=== PATIENT | male | born 1980 | race Native Hawaiian/Other Pacific Islander ===

== ENCOUNTER 2016-10-01 05:20 | Emergency (ER) | payer OTHER ==
[~2016-10-01] VITALS: Ht 188 cm; Wt 72.6 kg
[~2016-10-01 05:20] MED LIST: MELO-13 PO; PHEN100C15 PO
[2016-10-01 05:40] VITALS: TEMP 98
[2016-10-01] MEDS ORDERED: LORTAB 10-325 M1 TAB PO (05:42)
[2016-10-01 06:36] LABS: PLATELET COUNT 268 K/uL (142-355)
[2016-10-01 06:44] LABS: POTASSIUM 3.4 mmol/L (3.6-5.2); SODIUM 137 mmol/L (136-145)
[2016-10-01 12:00] VITALS: BP 121/79
== END 2016-10-01 12:01 | disposition home or self-care (01) ==
LOC: ED 05:20
PROVIDERS: Emergency Medicine
DX: R11.2 Nausea with vomiting, unspecified (principal)
CPT/HCPCS: 36415; 80053; 80307; 81000; 82150; 83690; 85027; 86618; 96361; 96365; 96375; 99284; G0479; J1170; J2270; J2405; J2550; J3490

== ENCOUNTER 2016-12-18 10:12 | Outpatient (CLI) | payer OTHER ==
[~2016-12-18 10:12] MED LIST changes: +LORTAB 10-325 M1 TAB PO
== END 2016-12-18 11:15 | disposition home or self-care (01) ==
LOC: RAD 10:12
DX: M47.896 Other spondylosis, lumbar region (principal); M25.562 Pain in left knee; M25.561 Pain in right knee

== ENCOUNTER 2017-07-23 10:12 | Emergency (ER) | payer OTHER ==
[~2017-07-23] VITALS: Ht 188 cm; Wt 72.6 kg
[2017-07-23 10:15] VITALS: TEMP 97.2
[2017-07-23 12:11] VITALS: BP 136/92
== END 2017-07-23 12:14 | disposition home or self-care (01) ==
LOC: ED 10:12
DX: S70.02XA Contusion of left hip, initial encounter (principal); W19.XXXA Unspecified fall, initial encounter
CPT/HCPCS: 96372; 99282; J1885

== ENCOUNTER 2018-12-12 17:49 | Emergency (ER) | payer OTHER ==
[~2018-12-12] VITALS: Ht 188 cm; Wt 63.0 kg
[2018-12-12 19:08] LABS: PLATELET COUNT 125 K/uL (142-355)
[2018-12-12 19:58] LABS: POTASSIUM 4.7 mmol/L (3.6-5.2)
[2018-12-12 20:40] VITALS: BP 130/86; TEMP 98.3
== END 2018-12-12 20:40 | disposition home or self-care (01) ==
LOC: ED 17:49
PROVIDERS: Emergency Medicine
DX: B34.9 Viral infection, unspecified (principal); R94.5 Abnormal results of liver function studies
CPT/HCPCS: 80053; 83605; 83690; 83735; 85027; 85379; 87502; 87651; 93005; 96360; 96375; 99284; J1885

== ENCOUNTER 2018-12-18 17:00 | Observation (INO) | payer OTHER ==
[~2018-12-18] VITALS: Ht 188 cm; Wt 64.1 kg
[2018-12-18 17:04] VITALS: BP 135/104; TEMP 98.4
[2018-12-18 17:49] LABS: PLATELET COUNT 193 K/uL (142-355)
[2018-12-18 18:02] LABS: POTASSIUM 4.2 mmol/L (3.6-5.2); SODIUM 140 mmol/L (136-145)
[2018-12-18 19:56] VITALS: BP 114/77
[2018-12-18 21:00] VITALS: BP 97/54
[2018-12-18 22:00] VITALS: BP 112/73
[2018-12-18 23:00] VITALS: BP 119/76
[2018-12-19] VITALS: BP 125/89
[2018-12-19 01:00] VITALS: BP 154/85; TEMP 97.8
[2018-12-19 04:00] VITALS: BP 120/77; TEMP 98.1
[2018-12-19 08:00] VITALS: BP 141/93; TEMP 98.2
--- NOTE | 2018-12-19 10:19 | NUR ---
PT TO BE D/C HOME AT THIS TIME. PT AWAITING RIDE. PT VERBALIZED UNDERSTANDING AT THIS TIME.
== END 2018-12-19 10:35 | disposition home or self-care (01) ==
LOC: ED 17:00 → MED/SURG 23:40
PROVIDERS: Emergency Medicine; ADMIT Family Medicine
DX: M94.0 Chondrocostal junction syndrome [Tietze] (principal); R07.89 Other chest pain; J44.9 Chronic obstructive pulmonary disease, unspecified; Z72.0 Tobacco use; F19.10 Other psychoactive substance abuse, uncomplicated; F10.10 Alcohol abuse, uncomplicated; D53.9 Nutritional anemia, unspecified
CPT/HCPCS: 36415; 80053; 80307; 80320; 82550; 82553; 84484; 85027; 85379; 93005; 96360; 96375; 99220; 99284; G0378; J1885; J2405; J3411; J3475; J3490; Q9963

== ENCOUNTER 2020-11-18 13:40 | Inpatient (IN) | payer OTHER ==
[~2020-11-18] VITALS: Ht 188 cm; Wt 73.9 kg
[2020-11-18 13:44] VITALS: BP 138/94; TEMP 97.9
[2020-11-18 14:30] VITALS: BP 126/97
[2020-11-18 14:31] LABS: PLATELET COUNT 155 K/uL (142-355)
[2020-11-18 14:39] LABS: POTASSIUM 2.6 mmol/L (3.6-5.2); SODIUM 141 mmol/L (136-145)
[2020-11-18 14:53] LABS: PARTIAL THROMBOPLASTIN TIME 24.1 SECONDS (24.5-33.6)
[2020-11-18 15:30] VITALS: BP 130/94
[2020-11-18 16:15] VITALS: BP 134/89
--- NOTE | 2020-11-18 17:04 | NUR ---
RECIEVED PT VIA WC FROM THE ED DEPT. 20G NOTED TO LEFT AC. ORIENTED TO ROOM
[2020-11-18 17:34] VITALS: BP 156/119; TEMP 98.4; Ht 188 cm; Wt 73.9 kg
--- NOTE | 2020-11-18 18:11 | NUR ---
UA CUP GIVEN TO PT AND INSTRUCTED TO NOTIFY STAFF WHEN HE VOIDS SO WE CAN OBTAIN A SAMPLE, PT VERBALIZED UNDERSTANDING.
--- NOTE | 2020-11-18 18:38 | NUR ---
UA OBTAINED AND SENT TO LAB
--- NOTE | 2020-11-18 18:40 | NUR ---
ORDERS RECIEVED FOR IVF AND LOVENOX. NOT YET PROFILED INTO OMNICELL. WILL PASS ALONG INFO TO PM SHIFT
[2020-11-18 20:00] VITALS: BP 147/108; TEMP 99.3
[2020-11-19] VITALS (7 sets, daily range): BP systolic 118–149; BP diastolic 57–103; TEMP 98.2–98.9
[2020-11-19 04:31] LABS: PLATELET COUNT 129 K/uL (142-355)
[2020-11-19 04:40] LABS: POTASSIUM 3.2 mmol/L (3.6-5.2)
--- NOTE | 2020-11-19 06:30 | NUR ---
PATIENT CALLED PLATING INSPECTOR LIGHT AND REQUESTING SOMETHING FOR "SEVERE GASTRIC REFLUX". CALLED DR. YI IN THE ER COVERING FOR HOSPITALIST AND ORDERS RECEIVED TO GIVE GI COCKTAIL 30MLS PO NOW AND Q 8 HOURS PRN FOR GERD. PATIENT GIVEN DOSE AT [phone], PATIENT INSTRUCTED TO CALL WITH ANY NEEDS OR REQUESTS OR IF GI COCKTAIL DOESNT HELP AND PATIENT VERBALIZES UNDERSTANDING. CALL LIGHT WITHIN REACH. WILL CONTINUE TO MONITOR.
[2020-11-20 00:13] VITALS: BP 133/97; TEMP 98.7
[2020-11-20 04:00] VITALS: BP 141/95; TEMP 98.4
[2020-11-20 04:50] LABS: PLATELET COUNT 141 K/uL (142-355)
[2020-11-20 05:00] LABS: POTASSIUM 3.6 mmol/L (3.6-5.2)
[2020-11-20 08:00] VITALS: BP 113/81; TEMP 99.7
[2020-11-20 12:00] VITALS: BP 115/82; TEMP 98.5
--- NOTE | 2020-11-20 13:06 | NUR ---
[employer] GRANTED PERMISSION TO ADMINISTER REMDESIVIR ORDERED BY PHYSICIAN.
[2020-11-20 16:00] VITALS: BP 114/80; TEMP 98.3
[2020-11-20 20:21] VITALS: BP 114/83; TEMP 99.5
[2020-11-21 00:19] VITALS: BP 117/79; TEMP 98.7
[2020-11-21 04:00] VITALS: BP 125/87; TEMP 97.9
[2020-11-21 04:57] LABS: PLATELET COUNT 171 K/uL (142-355)
[2020-11-21 05:01] LABS: POTASSIUM 4.2 mmol/L (3.6-5.2)
[2020-11-21 08:00] VITALS: BP 121/87; TEMP 98.3
[2020-11-21 12:00] VITALS: BP 109/79; TEMP 99
--- NOTE | 2020-11-21 13:00 | NUR ---
PROVIDED PATIENT TOILETRIES AND BATH LINENS FOR A SHOWER, PATIENT TOLERATED WELL AND DENIES ANY DIZZINESS OR SHORTNESS OF BREATH, BED LINENS CHANGED, PATIENT AMBULATED TO RECLINER AND REMAINS SEATED IN SAME. NAD NOTED WITH PATIENT AT THIS TIME. CALL LIGHT WITHIN REACH AND PATIENT INSTRUCTED TO CALL FOR ANY ASSISTANCE OR NEEDS, PT V/O UNDERSTANDING.
[2020-11-21 16:00] VITALS: BP 152/97; TEMP 98.3
[2020-11-21 20:21] VITALS: BP 121/82; TEMP 98.4
[2020-11-22 00:12] VITALS: BP 129/88; TEMP 98.5
[2020-11-22 04:06] VITALS: BP 128/98; TEMP 97.9
[2020-11-22 05:28] LABS: PLATELET COUNT 209 K/uL (142-355)
[2020-11-22 05:56] LABS: POTASSIUM 3.9 mmol/L (3.6-5.2)
[2020-11-22 08:00] VITALS: BP 122/81; TEMP 98
[2020-11-22 12:00] VITALS: BP 119/75; TEMP 98.4
--- NOTE | 2020-11-22 13:34 | NUR ---
PT IN HIGH FOWLERS IN BED. AWAKE AND ALERT, WATCHING TV. C/O BACK PAIN IN THE AM AND ADMINISTERED PAIN MED ORDERED. PTS SATS 98% ON ROOM AIR. IV SITE TO LFA INTACT WITH NO SWELLING OR REDNESS NOTED TO SITE. PT STARTED 2ND DOSE OF REMDESIVIR AND TOLERATED WELL. PT AMBULATES IN ROOM WITHOUT ASSISTANCE. NO VOICED COMPLAINTS.
[2020-11-22 16:00] VITALS: BP 124/82; TEMP 98.1
--- NOTE | 2020-11-22 19:01 | NUR ---
PT LAYING IN BED WATCHING TV. C/O BACK PAIN AND REQUESTED PAIN MED. PT STATED THAT HE TAKES HYDROCODONE AT HOME AND WOULD RATHER TAKE IT THAN TO TAKE MORPHINE. CONSULTED WITH HCP AND OBTAINED ORDER FOR HYDROCODONE PT REQUESTED. PT STATED THAT HE DOESN'T GET THE SAME EFFECT WITH MORPHINE HE DOES WITH HYDROCODONE. PT A&O X4.
[2020-11-22 20:00] VITALS: BP 128/83; TEMP 98.7
--- NOTE | 2020-11-22 21:45 | NUR ---
PM MEDS GIVEN AT THIS TIME. PT. TOLERATED WELL. BEFORE ENTERING ROOM, PT REQUESTED MEDICATION FOR BACK PAIN AND ACID REFLUX. PT. IN A HIGH FOWLERS POSITION WITH SIDE RAILS UP TIMES TWO WOTH BED IN LOWEST POSITION WITH CALL LIGHT WITHIN REACH. PT. STILL ON ROOM AIR, IV TO LFA INTACT AND INHALERS AND IS UTILIZIED AT THIS TIME. PT COMPLIANT AND REACTIVE TO VERBAL STIMULI.
[2020-11-23] VITALS: BP 133/86; TEMP 97.8
[2020-11-23 04:00] VITALS: BP 122/79; TEMP 97.8
[2020-11-23 05:42] LABS: PLATELET COUNT 250 K/uL (142-355)
[2020-11-23 06:06] LABS: POTASSIUM 3.8 mmol/L (3.6-5.2)
[2020-11-23 08:00] VITALS: BP 109/72; TEMP 98.2
[2020-11-23 12:00] VITALS: BP 110/67; TEMP 98.8
--- NOTE | 2020-11-23 13:32 | NUR ---
PT UP WATCHING TV. NAD NOTED. PTS SATS ABOVE 94% ON ROOM AIR. PT ALERT AND ORIENTED. C/O PAIN IN AM AND ADMINISTERED PAIN MED ORDERED. IV SITE TO LFA INTACT WITH NO SWELLING OR REDNESS NOTED. NO VOICED COMPLAINTS. PT HAD THIRD DOSE OF REMDESIVIR TODAY.
--- NOTE | 2020-11-23 13:57 | NUR ---
PTS DAUGHTER CALLED AND CONCERNED ABOUT HER FATHER BEING DISCHARGED TO GO HOME TODAY. DAUGHTER CONCERNED THAT FATHER MAY NOT BE WELL ENOUGH TO STAY AT HOME BY HIMSELF AT NIGHT. DAUGHTER APPEARED TO BE UPSET AND HUNG UP THE PHONE. ASSURED DAUGHTER THAT PT WAS ALERT AND ORIENTED. PT ABLE TO DRESS HIMSELF AND USE THE BATHROOM WITHOUT ANY ASSISTANCE FROM [facility] STAFF DURING THE DAY. HCP ([facility]ENTE) ASSSESSED PT PRIOR TO PT GOING HOME.
[2020-11-23 16:00] VITALS: BP 107/79; TEMP 97.7
[2020-11-23 20:30] VITALS: BP 108/78; TEMP 98.5
--- NOTE | 2020-11-23 20:54 | NUR ---
PM MEDS GIVEN AT THIS TIME. PT. TOLERATED WELL. NO S/S OF ACUTE DISTRESS NOTED AT THIS TIME. WILL CONTINUE TO MONITOR
[2020-11-24 00:23] VITALS: BP 103/73; TEMP 98
[2020-11-24 04:00] VITALS: BP 130/88; TEMP 97.7
[2020-11-24 05:32] LABS: PLATELET COUNT 374 K/uL (142-355)
[2020-11-24 05:40] LABS: POTASSIUM 3.1 mmol/L (3.6-5.2)
[2020-11-24 08:00] VITALS: BP 114/73; TEMP 98.1
--- NOTE | 2020-11-24 10:00 | NUR ---
11/24/20 1000 PT SITTING UP IN BED WATCHING T.V. RESP EVEN NONLABORED NAD NOTED.CC
[2020-11-24] MEDS ORDERED: ASCO500T18 PO (13:30)
[2020-11-24] MEDS ORDERED: VITAMIN D50000 UNIT PO (13:31)
[2020-11-24] MEDS ORDERED: PULMICORT180 MCG/AC INH (13:31)
[2020-11-24] MEDS ORDERED: ZINC220C4 PO (13:32)
[2020-11-24] MEDS ORDERED: METO-837 PO (13:32)
[2020-11-24] MEDS ORDERED: GABA300C2 PO (13:33)
[2020-11-24] MEDS ORDERED: IPRAAER INH (13:33)
[2020-11-24] MEDS ORDERED: LEVE250T PO (13:34)
--- NOTE | 2020-11-24 14:14 | NUR ---
11/24/20 1415 DISCHARGE INSTRUCTIONS GIVEN AND SIGNED.SALINE LOCK REMOVED APPLIED 2X2 SECURED WITH TAPE.NO REGULAR PCP WILL FOLLOW UP WITH DR. PENN NEUROLOGIST.CONTINUE TO WEAR MASK WHILE OUTDOORS AROUND OTHERS.CC 11/24/20 1420 PT TOOK OUT VIA WHEELCHAIR TO PRIVATE VECHICLE.CC
--- NOTE | 2020-11-24 14:34 | NUR ---
11/24/20 1415 EDUCATED ON COVID 19 SYMPTOMS TO REPORT ALSO GIVEN INFORMATION ON COVID EDUCATED ON HOW TO PROTECT OTHERS.PT VERBALIZED UNDERSTANDING.CC
--- NOTE | 2020-11-25 11:09 | NUR ---
Spoke with patient's Terese she said that he was still weak but doing better. She said that he would go to the shower and bathroom, but outside of that not much acitivity. Economic Specialist educated on the importance of moving so not to develope a clot. She said that she would have him do a little more activity.
== END 2020-11-24 14:20 | disposition home or self-care (01) | DRG 178 ==
LOC: ED 13:40 → MED/SURG 16:00
PROVIDERS: Emergency Medicine; ADMIT Internal Medicine Endocrinology, Diabetes & Metabolism; ATTEND Internal Medicine Endocrinology, Diabetes & Metabolism
DX: U07.1 COVID-19 (principal); N17.8 Other acute kidney failure; G40.802 Other epilepsy, not intractable, without status epilepticus; R11.2 Nausea with vomiting, unspecified; G89.4 Chronic pain syndrome; I10 Essential (primary) hypertension; E87.6 Hypokalemia; R73.9 Hyperglycemia, unspecified
CPT/HCPCS: 36415; 80053; 80307; 80320; 81000; 82150; 82570; 83036; 83690; 83735; 83880; 84300; 84484; 85027; 85379; 85610; 85730; 87635; 93005; 96360; 96375; 99284; J1100; J1644; J1953; J2270; J2405; J2550; J3490; U0003

== ENCOUNTER 2021-08-04 12:00 | Outpatient (CLI) | payer BC ==
[~2021-08-04 12:00] MED LIST changes: +ASCO500T18 PO; +GABA300C2 PO; +IPRAAER INH; +LEVE250T PO; +METO-837 PO; +PULMICORT180 MCG/AC INH; +VITAMIN D50000 UNIT PO; +ZINC220C4 PO
[2021-08-04 12:33] LABS: PLATELET COUNT 363 K/uL (142-355)
[2021-08-04 12:37] LABS: POTASSIUM 3.9 mmol/L (3.6-5.2)
== END 2021-08-04 19:55 | disposition home or self-care (01) ==
LOC: LABW 12:00
PROVIDERS: ATTEND Internal Medicine Endocrinology, Diabetes & Metabolism
DX: R60.1 Generalized edema (principal); Z87.448 Personal history of other diseases of urinary system; Z09 Encounter for follow-up examination after completed treatment for conditions other than malignant neoplasm
CPT/HCPCS: 36415; 80053; 82550; 85027